=== PATIENT | male | born 1995 | race Two or more races ===

== ENCOUNTER 2022-08-28 23:01 | Emergency (ER) | payer OTHER ==
[~2022-08-28] VITALS: Ht 180.3 cm; Wt 80.0 kg
[2022-08-29] MEDS ORDERED: KETOROLAC 60MG/2ML VIAL IM STA (00:18)
[2022-08-29] MEDS ORDERED: HYDROCODONE/ACETAMINOPHEN 5/325MG TABLET PO ONE (00:30)
[2022-08-29 00:35] VITALS: BP 162/90
[2022-08-29] MEDS ORDERED: LIDOCAINE HCL/PF 1% 10 MG/ML 5ML VIAL INFIL ONE (01:15)
[2022-08-29] MEDS ORDERED: NAPR-681 PO (03:01)
[2022-08-29] MEDS ORDERED: HYDR-4001 PO (03:01)
== END 2022-08-29 03:16 | disposition home or self-care (01) ==
LOC: ER 23:47
DX: S52.502A Unspecified fracture of the lower end of left radius, initial encounter for closed fracture (principal); V49.49XA Driver injured in collision with other motor vehicles in traffic accident, initial encounter; Y93.89 Activity, other specified; Y92.89 Other specified places as the place of occurrence of the external cause; Y99.8 Other external cause status
CPT/HCPCS: 73080; 73090; 73110; 96372; 99284; J1885; J3490; Z7610; A4565